=== PATIENT | male | born 1970 | race Caucasian/White ===

== ENCOUNTER 2020-02-18 09:50 | Day surgery (SDC) | payer OTHER ==
[2020-02-17 13:22] VITALS: BMI 19.9
[~2020-02-18 09:50] MED LIST: LACTATED RINGERS 1,000 ML IV SCH; LIDOCAINE 1% (10MG/ML) FOR IV START INTRADERMA PRN
[2020-02-18 10:24] VITALS: TEMP 98.3
[2020-02-18] MEDS ORDERED: LIDOCAINE 1% INJ 10MG/ML (20 ML MDV) ONE (10:53)
[2020-02-18] MEDS ORDERED: PROPOFOL 10 MG/ML 20 ML VIAL IV ONE (10:53)
--- NOTE | 2020-02-18 11:13 | P.PCN ---
Date of Procedure: 02/18/20 Procedure(s) Performed: Brief history: Patient is a pleasant 49-year-old white female scheduled for an elective upper endoscopy as well as colonoscopy as a part of evaluation of with epigastric pain/1 episode of hematemesis and screening for colorectal neoplasia Procedure performed: Esophagogastroduodenoscopy biopsy Colonoscopy with snare polypectomy Preoperative diagnosis: Epigastric pain/hematemesis Screening for colon cancer Anesthesia: MAC Procedure: After informed consent was obtained from the patient was brought into the endoscopy unit and IV sedation was administered by anesthesia under continuous monitoring. Initially upper endoscopy was done. The Olympus GF 160 video endoscope was inserted inserted into the mouth and esophagus intubated without any difficulty and was gradually advanced into the stomach and duodenum and carefully examined. The bulb and second part of the duodenum appeared normal. The scope was then withdrawn into the stomach adequately insufflated with air and upon careful examination the antrum and body, had mild diffuse gastritis and biopsies were done from this area. The cardia and fundus appeared normal. The scope was then withdrawn into the esophagus. The GE junction was located at 40 cm to the incisors. It appeared regular with 2 superficial erosions consistent with LA grade B reflux esophagitis.. Rest of the esophagus appeared normal. Patient tolerated the procedure well. At this time the patient continued to remain sedation. Initial digital rectal examination was normal. Olympus CF 160 video colonoscope was then inserted into the rectum and gradually advanced to the cecum without any difficulty. Careful examination was performed as the scope was gradually being withdrawn. The prep was excellent. The cecum, ascending colon, transverse colon, descending colon, sigmoid colon and rectum appeared normal. There was a 1 cm polyp in the proximal rectum that was removed by snare polypectomy. Retroflexion was performed in the rectum and no lesions were noted. Patient tolerated the procedure well. Impression: 1. Upper endoscopy revealed mild diffuse gastritis and LA grade a reflux esophagitis 2. Colonoscopy revealed 1 cm proximal rectal polyp status post polypectomy Recommendations: Findings of this examination were discussed with the patient as well as is family. He was advised to follow with the biopsy results. He was advised to follow with the biopsy results. If the biopsy shows an adenoma he can have a repeat colonoscopy in 3 years.
[2020-02-18 11:25] VITALS: RESP 16
[2020-02-18 11:30] VITALS: BP 126/87; PULSE 74
== END 2020-02-18 11:50 | disposition home or self-care (01) ==
LOC: ORWHC2ENDO 09:50
PROVIDERS: ATTEND Internal Medicine Gastroenterology
DX: K29.51 Unspecified chronic gastritis with bleeding (principal); K21.0 Gastro-esophageal reflux disease with esophagitis; Z12.11 Encounter for screening for malignant neoplasm of colon; D12.8 Benign neoplasm of rectum; K08.89 Other specified disorders of teeth and supporting structures; I25.2 Old myocardial infarction; I10 Essential (primary) hypertension; F17.210 Nicotine dependence, cigarettes, uncomplicated; Z79.899 Other long term (current) drug therapy
CPT/HCPCS: 88305; 45385; 43239; J2001; J2704

== ENCOUNTER 2022-09-04 11:15 | Emergency (ER) | payer OTHER ==
[2022-09-04 11:23] VITALS: TEMP 98.4
[2022-09-04] MEDS ORDERED: KETOROLAC 15 MG/ML 1 ML VIAL IVP STA (11:30)
[2022-09-04 11:58] LABS: Basophils % (A) 1 %; Eosinophils # (A) 0.1 k/uL (0-0.7); Eosinophils % (A) 2 %; HGB 13.9 gm/dL (13.0-17.5); Lymphocytes # (A) 1.3 k/uL (1.0-4.8); Lymphocytes % (A) 21 %; MCH 33.8 pg (25.0-35.0); MCHC 34.9 g/dL (31.0-37.0); MCV 96.9 fL (80.0-100.0); Mean Platelet Volume 7.2; Monocytes # (A) 0.4 k/uL (0-1.0); Monocytes % (A) 6 %; Neutrophils # (A) 4.3 k/uL (1.3-7.7); Neutrophils % (A) 69 %; Platelet Count 230 k/uL (150-450); RBC 4.13 m/uL (4.30-5.90); RDW 12.1 % (11.5-15.5); WBC 6.3 k/uL (3.8-10.6)
[2022-09-04 12:13] LABS: INR 0.9 (<1.2); Partial Thromboplastin Time 22.8 sec (22.0-30.0); Prothrombin Time 9.5 sec (9.0-12.0)
--- NOTE | 2022-09-04 12:14 | ED ---
General Adult HPI - General Chief complaint: Recheck/Abnormal Lab/Rx Stated complaint: lt sided rib pain Time Seen by Provider: 09/04/22 11:24 Source: patient, RN notes reviewed Mode of arrival: ambulatory Limitations: no limitations - History of Present Illness Initial comments: 52-year-old male presents emergency Department with chief complaint of left- sided rib pain. Patient states pain started over the last few days. Patient states that pain is worse with movements only cause. 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 He denies any chest pain as felt short of breath no fevers chills no abdominal pain no rashes. - Related Data Home Medications Medication Instructions Recorded Confirmed Cholecalciferol [Vitamin D3 (25 5,000 unit PO DAILY 02/17/20 02/18/20 Mcg = 1000 Iu)] hydroCHLOROthiazide [Hydrodiuril] 12.5 mg PO DAILY 02/17/20 02/18/20 lisinopriL 40 mg PO DAILY 02/17/20 02/18/20 Allergies Allergy/AdvReac Type Severity Reaction Status Date / Time No Known Allergies Allergy Verified 09/04/22 11:23 Review of Systems ROS Statement: Those systems with pertinent positive or pertinent negative responses have been documented in the HPI. ROS Other: All systems not noted in ROS Statement are negative. Past Medical History Past Medical History: GI Bleed, Hypertension, Myocardial Infarction (SC) Additional Past Medical History / Comment(s): "Mild SC 2011 est." c/o heartburn, occ vomiting, occ hematemesis. Last Myocardial Infarction Date:: 2011 History of Any Multi-Drug Resistant Organisms: None Reported Past Surgical History: No Surgical Hx Reported Past Anesthesia/Blood Transfusion Reactions: No Reported Reaction Smoking Status: Current every day smoker Past Alcohol Use History: Daily Past Drug Use History: None Reported - Past Family History Mother Family Medical History: Cancer Additional Family Medical History / Comment(s): breast General Exam Limitations: no limitations General appearance: alert, in no apparent distress Head exam: Present: atraumatic, normocephalic, normal inspection Eye exam: Present: normal appearance, PERRL, EOMI. Absent: scleral icterus, conjunctival injection, periorbital swelling ENT exam: Present: normal exam, normal oropharynx, mucous membranes moist, TM's normal bilaterally Neck exam: Present: normal inspection. Absent: tenderness, meningismus, lymphadenopathy Respiratory exam: Present: normal lung sounds bilaterally, chest wall tenderness. Absent: respiratory distress, wheezes, rales, rhonchi, stridor Cardiovascular Exam: Present: regular rate, normal rhythm, normal heart sounds. Absent: systolic murmur, diastolic murmur, rubs, gallop, clicks GI/Abdominal exam: Present: soft, normal bowel sounds. Absent: distended, tenderness, guarding, rebound, rigid Back exam: Absent: CVA tenderness (R), CVA tenderness (L) Neurological exam: Present: alert Skin exam: Present: warm, dry, intact, normal color. Absent: rash Course Vital Signs 09/04/22 11:17 Temperature 98.4 F Pulse Rate 85 Respiratory 16 Rate Blood Pressure 135/86 O2 Sat by Pulse 99 Oximetry EKG Findings - EKG Comments: EKG Findings:: EKG performed at 11:32 sinus rhythm rate of 75 NH 150 QRS 99 QT/QTC 360/389 - EKG Results: EKG: interpreted by CATHLEEN Medical Decision Making - Medical Decision Making Was pt. sent in by a medical professional or institution (, PA, SHELL SIEVE OPERATOR, urgent care, hospital, or intermediate...) When possible be specific @ -No Did you speak to anyone other than the patient for history (EMS, parent, family, police, friend...)? What history was obtained from this source @ -No Did you review nursing and triage notes (agree or disagree)? Why? @ -I reviewed and agree with nursing and triage notes Were old charts reviewed (outside hosp., previous admission, EMS record, old EKG, old radiological studies, urgent care reports/EKG's, intermediate records)? Report findings @ -No old charts were reviewed Differential Diagnosis (chest pain, altered mental status, abdominal pain women, abdominal pain men, vaginal bleeding, weakness, fever, dyspnea, syncope, headache, dizziness, GI bleed, back pain, seizure, CVA, palpatations, mental health)? @ -Rib fracture, pneumothorax, costochondritis, chest wall injury, ACS, pneumonia, EKG interpreted by me (3pts min.). @ -As above X-rays interpreted by me (1pt min.). @ -Chest x-ray shows right upper lobe nodule, otherwise no acute process CT interpreted by me (1pt min.). @ -None done U/S interpreted by me (1pt. min.). @ -None done What testing was considered but not performed or refused? (CT, X-rays, U/S, labs)? Why? @ -CTA chest was considered though current d-dimer is negative and may follow palpation for CT to rule out nodule pulmonology, PCP What meds were considered but not given or refused? Why? @ -None Did you discuss the management of the patient with other professionals (professionals i.e. , PA, SHELL SIEVE OPERATOR, lab, RT, psych nurse, social work supervisor, credit and loan collections supervisor, teacher, protective officer, telephonic case manager)? Give summary @ -No Was smoking cessation discussed for >3mins.? @ -I discussed smoking cessation for greater than 3 minutes. The risk of smoking were discussed with the patient including but not limited to risks of cancer, stroke, coronary artery disease and COPD. Also discussed with patient were multiple methods of quitting smoking. Lastly we discussed the financial cost of smoking. Was critical care preformed (if so, how long)? @ -No Were there social determinants of health that impacted care today? How? (Homelessness, low income, unemployed, alcoholism, drug addiction, transportation, low edu. Level, literacy, decrease access to med. care, fpc, rehab)? @ -No Was there de-escalation of care discussed even if they declined (Discuss DNR or withdrawal of care, Hospice)? DNR status @ -No What co-morbidities impacted this encounter? (DM, HTN, Smoking, COPD, CAD, Cancer, CVA, ARF, Chemo, Hep., AIDS, mental health diagnosis, sleep apnea, morbid obesity)? @ -Smoking history Was patient admitted / discharged? Hospital course, mention meds given and route, prescriptions, significant lab abnormalities, going to OR and other pertinent info. @ -Discharge patient has reproducible left chest wall pain agents pain has been present for 3 days with a negative troponin patient needs a follow-up outpatient for CT her for a nodule on x-ray. Undiagnosed new problem with uncertain prognosis? @ -No Drug Therapy requiring intensive monitoring for toxicity (Heparin, Nitro, Insulin, Cardizem)? @ -No Were any procedures done? @ -No Diagnosis/symptom? @ -Chest wall pain Acute, or Chronic, or Acute on Chronic? @ -Acute Uncomplicated (without systemic symptoms) or Complicated (systemic symptoms)? @ -Uncomplicated Side effects of treatment? @ -No Exacerbation, Progression, or Severe Exacerbation? @ -No Poses a threat to life or bodily function? How? (Chest pain, USA, SC, pneumonia, PE, COPD, DKA, ARF, appy, cholecystitis, CVA, Diverticulitis, Homicidal, Suicidal, threat to staff... and all critical care pts) @ -No - Lab Data Result diagrams: 09/04/22 11:37 09/04/22 11:37 Lab Results 09/04/22 09/04/22 09/04/22 Range/Units 11:37 11:37 11:37 WBC 6.3 (3.8-10.6) k/uL RBC 4.13 L (4.30-5.90) m/uL Hgb 13.9 (13.0-17.5) gm/dL Hct 40.0 (39.0-53.0) % MCV 96.9 (80.0-100.0) fL MCH 33.8 (25.0-35.0) pg MCHC 34.9 (31.0-37.0) g/dL RDW 12.1 (11.5-15.5) % Plt Count 230 (150-450) k/uL MPV 7.2 Neutrophils % 69 % Lymphocytes % 21 % Monocytes % 6 % Eosinophils % 2 % Basophils % 1 % Neutrophils # 4.3 (1.3-7.7) k/uL Lymphocytes # 1.3 (1.0-4.8) k/uL Monocytes # 0.4 (0-1.0) k/uL Eosinophils # 0.1 (0-0.7) k/uL Basophils # 0.0 (0-0.2) k/uL PT 9.5 (9.0-12.0) sec INR 0.9 (<1.2) APTT 22.8 (22.0-30.0) sec D-Dimer 0.43 (<0.60) mg/L FEU Sodium 132 L (137-145) mmol/L Potassium 4.7 (3.5-5.1) mmol/L Chloride 100 (98-107) mmol/L Carbon Dioxide 25 (22-30) mmol/L Anion Gap 7 mmol/L BUN 6 L (9-20) mg/dL Creatinine 0.64 L (0.66-1.25) mg/dL Est GFR (CKD-EPI)AfAm >90 (>60 ml/min/1.73 sqM) Est GFR (CKD-EPI)NonAf >90 (>60 ml/min/1.73 sqM) Glucose 97 (74-99) mg/dL Calcium 9.0 (8.4-10.2) mg/dL Magnesium 2.0 (1.6-2.3) mg/dL Total Bilirubin 0.4 (0.2-1.3) mg/dL AST 31 (17-59) U/L ALT 28 (4-49) U/L Alkaline Phosphatase 47 (38-126) U/L Troponin I (0.000-0.034) ng/mL Total Protein 6.9 (6.3-8.2) g/dL Albumin 4.5 (3.5-5.0) g/dL 09/04/22 Range/Units 11:37 WBC (3.8-10.6) k/uL RBC (4.30-5.90) m/uL Hgb (13.0-17.5) gm/dL Hct (39.0-53.0) % MCV (80.0-100.0) fL MCH (25.0-35.0) pg MCHC (31.0-37.0) g/dL RDW (11.5-15.5) % Plt Count (150-450) k/uL MPV Neutrophils % % Lymphocytes % % Monocytes % % Eosinophils % % Basophils % % Neutrophils # (1.3-7.7) k/uL Lymphocytes # (1.0-4.8) k/uL Monocytes # (0-1.0) k/uL Eosinophils # (0-0.7) k/uL Basophils # (0-0.2) k/uL PT (9.0-12.0) sec INR (<1.2) APTT (22.0-30.0) sec D-Dimer (<0.60) mg/L FEU Sodium (137-145) mmol/L Potassium (3.5-5.1) mmol/L Chloride (98-107) mmol/L Carbon Dioxide (22-30) mmol/L Anion Gap mmol/L BUN (9-20) mg/dL Creatinine (0.66-1.25) mg/dL Est GFR (CKD-EPI)AfAm (>60 ml/min/1.73 sqM) Est GFR (CKD-EPI)NonAf (>60 ml/min/1.73 sqM) Glucose (74-99) mg/dL Calcium (8.4-10.2) mg/dL Magnesium (1.6-2.3) mg/dL Total Bilirubin (0.2-1.3) mg/dL AST (17-59) U/L ALT (4-49) U/L Alkaline Phosphatase (38-126) U/L Troponin I <0.012 (0.000-0.034) ng/mL Total Protein (6.3-8.2) g/dL Albumin (3.5-5.0) g/dL Disposition Clinical Impression: Chest wall pain, Lung nodule Disposition: HOME SELF-CARE Condition: Stable Instructions (If sedation given, give patient instructions): Chest Pain (ED) Additional Instructions: Please return to the Emergency Department if symptoms worsen or any other concerns. Is patient prescribed a controlled substance at d/c from ED?: No Referrals: Yonatan Bishop DO [Primary Care Provider] - 1-2 days Time of Disposition: 13:08
--- NOTE | 2022-09-04 12:23 | XR ---
EXAMINATION TYPE: XR chest 2V DATE OF EXAM: 09/04/2022 COMPARISON: NONE TECHNIQUE: PA and lateral views submitted. HISTORY: Left-sided rib pain FINDINGS: The lungs are clear and there is no pneumothorax, pleural effusion, or focal pneumonia. Heart size normal and no overt failure. Osseous structures demonstrate hypertrophic and degenerative changes of the spine. Diffuse hyperinflation suggesting COPD. There is a vague nodular density in the right lung apex. Heart size normal. IMPRESSION: 1. COPD. Short-term follow-up CT chest recommended to assess for possible right apical lung nodule or lesion..
[2022-09-04 12:24] LABS: ALT 28 U/L (4-49); AST 31 U/L (17-59); African American GFR (CKD) >90 (>60 ml/min/1.73 sqM); Albumin 4.5 g/dL (3.5-5.0); Alkaline Phosphatase 47 U/L (38-126); Anion Gap 7 mmol/L; Blood Urea Nitrogen 6 mg/dL (9-20); Carbon Dioxide 25 mmol/L (22-30); Chloride 100 mmol/L (98-107); Glucose 97 mg/dL (74-99); Non-African American GFR(CKD) >90 (>60 ml/min/1.73 sqM); Potassium 4.7 mmol/L (3.5-5.1); Sodium 132 mmol/L (137-145); Total Bilirubin 0.4 mg/dL (0.2-1.3); Total Protein 6.9 g/dL (6.3-8.2)
[2022-09-04 13:23] VITALS: BP 130/82; PULSE 68; RESP 20
== END 2022-09-04 13:26 | disposition home or self-care (01) ==
LOC: EC 11:15
DX: R07.89 Other chest pain (principal); R91.1 Solitary pulmonary nodule; I10 Essential (primary) hypertension; I25.2 Old myocardial infarction; F17.200 Nicotine dependence, unspecified, uncomplicated
CPT/HCPCS: 36415; 93005; 85379; 80053; 83735; 84484; 85025; 85610; 85730; 71046; 99284; 96374; J1885

== ENCOUNTER → 2022-10-17 | Outpatient (CLI) | payer OTHER ==
--- NOTE | 2022-10-17 11:00 | CT ---
EXAMINATION TYPE: CT chest w con DATE OF EXAM: 10/17/2022 COMPARISON: Chest x-ray September 04, 2022 HISTORY: lung nodule. Abnormal chest x-ray. CT DLP: 139.5 mGycm. Automated Exposure Control for Dose Reduction was Utilized. TECHNIQUE: CT scan of the thorax is performed following with IV Contrast, patient injected with 100 mL of Isovue 300. FINDINGS: LUNGS: Moderate underlying emphysematous changes seen with more focal mild to moderate irregular pare nchymal scarring felt present posterior right lung apex mimicking pulmonary nodule measuring 2.1 x 1. 0 cm axial image 11. Spiculated nodule not entirely excluded without prior comparison. No pleural eff usion or pneumothorax seen bilaterally. Left lung is clear. MEDIASTINUM: There are no greater than 1 cm hilar or mediastinal lymph nodes. No cardiomegaly or pe ricardial effusion is seen. There is four vessel origin from the aortic arch which is normal variant . OTHER: Subcentimeter round lesion right hepatic lobe is too small to further characterize axial image 65 but presumed benign. IMPRESSION: Moderate emphysematous change with 2.1 x 1.0 cm area of concern posterior right lung apex favoring parenchymal scarring. Spiculated nodule less likely but not entirely excluded without prior comparison. PET/CT follow-up can be performed to further evaluate if no prior outside studies are av ailable for correlation.
== END | disposition home or self-care (01) ==
LOC: RADCTMAIN 07:28
PROVIDERS: ATTEND Family Medicine
DX: J43.9 Emphysema, unspecified (principal); R91.1 Solitary pulmonary nodule; J98.4 Other disorders of lung
CPT/HCPCS: 71260; Q9967

== ENCOUNTER → 2022-11-22 | Outpatient (CLI) | payer OTHER ==
--- NOTE | 2022-11-24 11:58 | PE ---
EXAMINATION TYPE: PET CT fusion skull to thigh DATE OF EXAM: 11/22/2022 CLINICAL INDICATION:Male, 52 years old with history of R91.8 OTHER NONSPECIFIC ABNORMAL FINDING OF YENI NG F; TECHNIQUE: Following the intravenous administration of 13 mCi of F-18 FDG, whole body images are pe rformed from the skull base to the midthigh. Images are reviewed on the computer in the coronal, axi al, and sagittal planes. Reconstructed rotating images are created on independent workstation and re viewed on the computer. A non-contrast CT is performed in conjunction with the PET scan. Glucose le radha 86 mg/dL COMPARISON: CT 10/17/2022, PET/CT None, FINDINGS: Mediastinal SUV mean is 1.6. Hepatic parenchyma SUV mean is 1.9. SKULL BASE AND NECK: No suspicious radiotracer activity. CHEST, MEDIASTINUM, AND HILAR REGION: Focal FDG activity corresponding to pulmonary nodule in the right posterior lung apex measuring rough ly 19 x 9 mm max SUV 2.0. Unclear whether this is fibrotic/scarring change versus ABDOMEN AND PELVIS: No suspicious radiotracer activity. OSSEOUS STRUCTURES: No suspicious radiotracer activity. OTHER CT: Atherosclerosis of the carotid bifurcations arterial vasculature and coronary arteries. Rig ht hepatic cyst. Centrilobular and paraseptal emphysema changes. IMPRESSION: Minimal Focal FDG activity corresponding to pulmonary nodule in the right posterior lung apex measuri ng roughly 19 x 9 mm max SUV 2.0. Unclear whether this is scarring with infectious/inflammatory duncan es. Attention follow-up CT chest in 3 months.
== END | disposition home or self-care (01) ==
LOC: RADPETMAIN 17:14
PROVIDERS: ATTEND Internal Medicine Critical Care Medicine
DX: R91.8 Other nonspecific abnormal finding of lung field (principal)
CPT/HCPCS: 78815; A9552

== ENCOUNTER 2022-12-17 11:59 | Observation (INO) | payer OTHER ==
[2022-12-17] MEDS ORDERED: SODIUM CHLORIDE 0.9% 1,000 ML IV STA (12:34)
[2022-12-17] MEDS ORDERED: ONDANSETRON 4 MG/2 ML VIAL IVP STA (12:34)
[2022-12-17 13:02] LABS: Basophils % (A) 0 %; Eosinophils # (A) 0.1 k/uL (0-0.7); Eosinophils % (A) 1 %; HCT 38.8 % (39.0-53.0); HGB 13.4 gm/dL (13.0-17.5); Lymphocytes % (A) 12 %; MCH 33.9 pg (25.0-35.0); MCHC 34.5 g/dL (31.0-37.0); MCV 98.4 fL (80.0-100.0); Mean Platelet Volume 7.8; Monocytes # (A) 0.6 k/uL (0-1.0); Monocytes % (A) 7 %; Neutrophils # (A) 6.5 k/uL (1.3-7.7); Neutrophils % (A) 79 %; Platelet Count 245 k/uL (150-450); RBC 3.95 m/uL (4.30-5.90); RDW 11.6 % (11.5-15.5); WBC 8.2 k/uL (3.8-10.6)
[2022-12-17 13:12] LABS: ALT 30 U/L (4-49); AST 36 U/L (17-59); African American GFR (CKD) >90 (>60 ml/min/1.73 sqM); Albumin 4.2 g/dL (3.5-5.0); Alkaline Phosphatase 54 U/L (38-126); Anion Gap 9 mmol/L; Blood Urea Nitrogen 11 mg/dL (9-20); Calcium 9.2 mg/dL (8.4-10.2); Carbon Dioxide 27 mmol/L (22-30); Chloride 87 mmol/L (98-107); Glucose 105 mg/dL (74-99); Lipase 72 U/L (23-300); Magnesium 1.9 mg/dL (1.6-2.3); Non-African American GFR(CKD) >90 (>60 ml/min/1.73 sqM); Potassium 4.2 mmol/L (3.5-5.1); Sodium 123 mmol/L (137-145); Total Bilirubin 0.7 mg/dL (0.2-1.3); Total Protein 6.6 g/dL (6.3-8.2)
[2022-12-17] MEDS ORDERED: ONDANSETRON 4 MG/2 ML VIAL IVP PRN (13:54)
[2022-12-17] MEDS ORDERED: NALOXONE 0.4 MG/ML 1 ML VIAL IV PRN (13:54)
--- NOTE | 2022-12-17 13:54 | ED ---
Nausea/Vomiting/Diarrhea HPI - General Chief complaint: Nausea/Vomiting/Diarrhea Stated complaint: Dehydrated Time Seen by Provider: 12/17/22 12:21 Source: patient, RN notes reviewed Mode of arrival: ambulatory Limitations: no limitations - History of Present Illness Initial comments: 52-year-old male presents emergency Department chief complaint nausea vomiting, dizziness. 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 Patient states that he just doesn't feel well. He states he feels dehydrated. Patient has no localized abdominal pain of went of headache no chest pain or shortness of breath. - Related Data Home Medications Medication Instructions Recorded Confirmed hydroCHLOROthiazide [Hydrodiuril] 12.5 mg PO DAILY 02/17/20 12/17/22 lisinopriL 40 mg PO DAILY 02/17/20 12/17/22 Ibuprofen [Motrin] 800 mg PO Q6H PRN 12/17/22 12/17/22 Allergies Allergy/AdvReac Type Severity Reaction Status Date / Time No Known Allergies Allergy Verified 12/17/22 13:20 Review of Systems ROS Statement: Those systems with pertinent positive or pertinent negative responses have been documented in the HPI. ROS Other: All systems not noted in ROS Statement are negative. Past Medical History Past Medical History: GI Bleed, Hypertension, Myocardial Infarction ([place]) Additional Past Medical History / Comment(s): "Mild [place] 2011 est." c/o heartburn, occ vomiting, occ hematemesis. Last Myocardial Infarction Date:: 2011 History of Any Multi-Drug Resistant Organisms: None Reported Past Surgical History: No Surgical Hx Reported Past Anesthesia/Blood Transfusion Reactions: No Reported Reaction Past Psychological History: No Psychological Hx Reported Smoking Status: Current every day smoker Past Alcohol Use History: Daily Past Drug Use History: None Reported - Past Family History Mother Family Medical History: Cancer Additional Family Medical History / Comment(s): breast General Exam Limitations: no limitations General appearance: alert, in no apparent distress Head exam: Present: atraumatic, normocephalic, normal inspection Eye exam: Present: normal appearance, PERRL, EOMI. Absent: scleral icterus, conjunctival injection, periorbital swelling ENT exam: Present: normal exam, mucous membranes dry, mucous membranes moist Neck exam: Present: normal inspection, full ROM. Absent: tenderness, meningismus, lymphadenopathy Respiratory exam: Present: normal lung sounds bilaterally. Absent: respiratory distress, wheezes, rales, rhonchi, stridor Cardiovascular Exam: Present: regular rate, normal rhythm, normal heart sounds. Absent: systolic murmur, diastolic murmur, rubs, gallop, clicks GI/Abdominal exam: Present: soft, normal bowel sounds. Absent: distended, tenderness, guarding, rebound, rigid Course Vital Signs 12/17/22 12/17/22 12/17/22 12:00 12:42 12:43 Temperature 98.2 F Pulse Rate 79 Pulse Rate [ 73 75 Right Pulse Oximetery] Respiratory 16 18 20 Rate Blood Pressure 109/72 Blood Pressure 103/72 [Right Arm Sitting] Blood Pressure [Right Arm Standing] Blood Pressure 102/70 [Right Arm Supine] O2 Sat by Pulse 99 Oximetry 12/17/22 12:44 Temperature Pulse Rate Pulse Rate [ 88 Right Pulse Oximetery] Respiratory 20 Rate Blood Pressure Blood Pressure [Right Arm Sitting] Blood Pressure 91/63 [Right Arm Standing] Blood Pressure [Right Arm Supine] O2 Sat by Pulse Oximetry Medical Decision Making - Medical Decision Making Was pt. sent in by a medical professional or institution (, PA, MANAGER INSTRUMENTATION, urgent care, hospital, or care home...) When possible be specific @ -No Did you speak to anyone other than the patient for history (EMS, parent, family, police, friend...)? What history was obtained from this source @ -No Did you review nursing and triage notes (agree or disagree)? Why? @ -I reviewed and agree with nursing and triage notes Were old charts reviewed (outside hosp., previous admission, EMS record, old EKG, old radiological studies, urgent care reports/EKG's, care home records)? Report findings @ -No old charts were reviewed Differential Diagnosis (chest pain, altered mental status, abdominal pain women, abdominal pain men, vaginal bleeding, weakness, fever, dyspnea, syncope, headache, dizziness, GI bleed, back pain, seizure, CVA, palpatations, mental health, musculoskeletal)? @ -Differential Weakness: Hypoglycemia, shock, sepsis, hyponatremia, anemia, infection, [place], ETOH, adverse medicine reaction, overdose, stroke, this is not meant to be an all-inclusive list. EKG interpreted by me (3pts min.). @ -As above X-rays interpreted by me (1pt min.). @ -None done CT interpreted by me (1pt min.). @ -None done U/S interpreted by me (1pt. min.). @ -None done What testing was considered but not performed or refused? (CT, X-rays, U/S, labs)? Why? @ -None What meds were considered but not given or refused? Why? @ -None Did you discuss the management of the patient with other professionals (professionals i.e. DrTerry, PA, MANAGER INSTRUMENTATION, lab, RT, psych nurse, psych social worker, vessel traffic officer, teacher, network security officer, home health care case manager)? Give summary @ -Dr. Bishop for admission given symptomatic hyponatremia Was smoking cessation discussed for >3mins.? @ -No Was critical care preformed (if so, how long)? @ -No Were there social determinants of health that impacted care today? How? (Homelessness, low income, unemployed, alcoholism, drug addiction, transportation, low edu. Level, literacy, decrease access to med. care, custodial, rehab)? @ -No Was there de-escalation of care discussed even if they declined (Discuss DNR or withdrawal of care, Hospice)? DNR status @ -No What co-morbidities impacted this encounter? (DM, HTN, Smoking, COPD, CAD, Cancer, CVA, ARF, Chemo, Hep., AIDS, mental health diagnosis, sleep apnea, morbid obesity)? @ -None Was patient admitted / discharged? Hospital course, mention meds given and route, prescriptions, significant lab abnormalities, going to OR and other pertinent info. @ -[Admitted patient has evidence of hypernatremia. Patient's hyponatremia may be coming from his GI illnesses versus beer potomania. Discuss case with Dr. Bishop Undiagnosed new problem with uncertain prognosis? @ -No Drug Therapy requiring intensive monitoring for toxicity (Heparin, Nitro, Insulin, Cardizem)? @ -No Were any procedures done? @ -No Diagnosis/symptom? @ -Hyponatremia Acute, or Chronic, or Acute on Chronic? @ -Acute Uncomplicated (without systemic symptoms) or Complicated (systemic symptoms)? @ -Complicated Side effects of treatment? @ -No Exacerbation, Progression, or Severe Exacerbation? @ -No Poses a threat to life or bodily function? How? (Chest pain, [place], [place], pneumonia, PE, COPD, DKA, ARF, appy, cholecystitis, CVA, Diverticulitis, Homicidal, Suicidal, threat to staff... and all critical care pts) @ -No - Lab Data Result diagrams: 12/17/22 12:45 12/17/22 12:45 Lab Results 12/17/22 12/17/22 Range/Units 12:45 12:45 WBC 8.2 (3.8-10.6) k/uL RBC 3.95 L (4.30-5.90) m/uL Hgb 13.4 (13.0-17.5) gm/dL Hct 38.8 L (39.0-53.0) % MCV 98.4 (80.0-100.0) fL MCH 33.9 (25.0-35.0) pg MCHC 34.5 (31.0-37.0) g/dL RDW 11.6 (11.5-15.5) % Plt Count 245 (150-450) k/uL MPV 7.8 Neutrophils % 79 % Lymphocytes % 12 % Monocytes % 7 % Eosinophils % 1 % Basophils % 0 % Neutrophils # 6.5 (1.3-7.7) k/uL Lymphocytes # 1.0 (1.0-4.8) k/uL Monocytes # 0.6 (0-1.0) k/uL Eosinophils # 0.1 (0-0.7) k/uL Basophils # 0.0 (0-0.2) k/uL Sodium 123 L (137-145) mmol/L Potassium 4.2 (3.5-5.1) mmol/L Chloride 87 L (98-107) mmol/L Carbon Dioxide 27 (22-30) mmol/L Anion Gap 9 mmol/L BUN 11 (9-20) mg/dL Creatinine 0.92 (0.66-1.25) mg/dL Est GFR (CKD-EPI)AfAm >90 (>60 ml/min/1.73 sqM) Est GFR (CKD-EPI)NonAf >90 (>60 ml/min/1.73 sqM) Glucose 105 H (74-99) mg/dL Calcium 9.2 (8.4-10.2) mg/dL Magnesium 1.9 (1.6-2.3) mg/dL Total Bilirubin 0.7 (0.2-1.3) mg/dL AST 36 (17-59) U/L ALT 30 (4-49) U/L Alkaline Phosphatase 54 (38-126) U/L Total Protein 6.6 (6.3-8.2) g/dL Albumin 4.2 (3.5-5.0) g/dL Lipase 72 (23-300) U/L - EKG Data -: EKG Interpreted by Me EKG Comments: EKG performed that 1259 sinus rhythm rate of 65 FL 155 QRS 113 QT/QTC 411/423 Disposition Clinical Impression: Dehydration, Hyponatremia Disposition: ADMITTED IP TO THIS HOSP Condition: Fair Referrals: Yonatan Bishop DO [Primary Care Provider] - 1-2 days Time of Disposition: 13:41
[2022-12-17] MEDS: SODIUM CHLORIDE 0.9% 1,000 ML IV SCH (14:47)
[2022-12-18 03:16] VITALS: RESP 16
[2022-12-18] MEDS: SODIUM CHLORIDE 0.9% 1,000 ML IV SCH (04:16)
[2022-12-18 07:29] VITALS: BP 117/71; PULSE 66; TEMP 98.4
[2022-12-18 08:12] LABS: Basophils % (A) 0 %; Eosinophils # (A) 0.1 k/uL (0-0.7); Eosinophils % (A) 2 %; HCT 37.1 % (39.0-53.0); HGB 12.6 gm/dL (13.0-17.5); Lymphocytes # (A) 0.9 k/uL (1.0-4.8); Lymphocytes % (A) 19 %; MCH 34.3 pg (25.0-35.0); MCHC 33.9 g/dL (31.0-37.0); MCV 101.3 fL (80.0-100.0); Mean Platelet Volume 7.3; Monocytes # (A) 0.4 k/uL (0-1.0); Monocytes % (A) 8 %; Neutrophils # (A) 3.2 k/uL (1.3-7.7); Neutrophils % (A) 69 %; Platelet Count 214 k/uL (150-450); RBC 3.67 m/uL (4.30-5.90); RDW 11.8 % (11.5-15.5); WBC 4.6 k/uL (3.8-10.6)
[2022-12-18 08:29] LABS: ALT 30 U/L (4-49); AST 38 U/L (17-59); African American GFR (CKD) >90 (>60 ml/min/1.73 sqM); Albumin 3.5 g/dL (3.5-5.0); Albumin/Globulin Ratio 1.6; Alkaline Phosphatase 56 U/L (38-126); Anion Gap 8 mmol/L; Blood Urea Nitrogen 7 mg/dL (9-20); Calcium 8.7 mg/dL (8.4-10.2); Carbon Dioxide 24 mmol/L (22-30); Chloride 96 mmol/L (98-107); Globulin 2.2 g/dL; Glucose 90 mg/dL (74-99); Non-African American GFR(CKD) >90 (>60 ml/min/1.73 sqM); Sodium 128 mmol/L (137-145); Total Bilirubin 0.5 mg/dL (0.2-1.3); Total Protein 5.7 g/dL (6.3-8.2)
[2022-12-18] MEDS ORDERED: lisinopriL 20 MG TAB PO SCH (09:00)
--- NOTE | 2022-12-18 13:22 | P.HPIM ---
History of Present Illness H&P Date: 12/18/22 Chief Complaint: Nausea and vomiting History and Physical and Discharge Summary This is a 52-year-old gentleman with past medical history significant for GI bleed, hypertension, CAD/[place], ongoing nicotine dependence, daily alcohol abuse of 8-10 [place] tall boys , and multiple other medical issues presented to the ER with complaints of nausea, vomiting, mild lightheadedness. Reports his last drink was on Friday, drink 8-10 beers daily, went to bed early, woke up nauseated, vomiting and attributes it to his alcohol intake. Nausea and vomiting persisted for 2-1/2 days and presented to the ER. Sodium on admission 123. Received IV fluid hydration, sodium significantly improved to 128. No further nausea and vomiting. Positive diet intake, tolerating well. Denies abdominal pain. Ambulating, tolerating exertion well. Denies lightheadedness, dizziness or focal deficits. Denies chest pain, palpitations or shortness of breath. No tremors, no shakes. Alcohol abstinence and smoking cessation reinforced. Review of Systems ROS Statement: Those systems with pertinent positive or pertinent negative responses have been documented in the HPI. ROS Other: All systems not noted in ROS Statement are negative. Past Medical History Past Medical History: GI Bleed, Hypertension, Myocardial Infarction ([place]) Additional Past Medical History / Comment(s): "Mild [place] 2011 est." c/o heartburn, occ vomiting, occ hematemesis. Last Myocardial Infarction Date:: 2011 History of Any Multi-Drug Resistant Organisms: None Reported Past Surgical History: No Surgical Hx Reported Past Anesthesia/Blood Transfusion Reactions: No Reported Reaction Past Psychological History: No Psychological Hx Reported Smoking Status: Current every day smoker Past Alcohol Use History: Daily Additional Past Alcohol Use History / Comment(s): Smoking 1 ppd, since age 16. Drinks couple beers daily, 3-4 beers Past Drug Use History: None Reported - Past Family History Mother Family Medical History: Cancer Additional Family Medical History / Comment(s): breast Medications and Allergies Home Medications Medication Instructions Recorded Confirmed Type lisinopriL 40 mg PO DAILY 02/17/20 12/17/22 History Omeprazole 40 mg PO DAILY #30 cap 12/18/22 Rx Allergies Allergy/AdvReac Type Severity Reaction Status Date / Time No Known Allergies Allergy Verified 12/17/22 13:20 Physical Exam Vitals: Vital Signs Temp Pulse Pulse Resp BP BP BP 12/18/22 07:09 98.4 F 66 16 12/18/22 02:00 98.5 F 63 16 102/59 12/17/22 23:00 18 12/17/22 22:00 98.7 F 70 18 107/72 12/17/22 20:45 97.6 F 78 16 12/17/22 20:00 66 18 105/70 12/17/22 18:00 78 19 105/71 12/17/22 17:00 82 20 90/57 12/17/22 16:00 75 20 101/63 12/17/22 15:00 84 20 115/84 12/17/22 14:50 89 16 115/84 12/17/22 12:44 88 20 91/63 12/17/22 12:43 75 20 103/72 12/17/22 12:42 73 18 12/17/22 12:00 98.2 F 79 16 109/72 BP Pulse Ox 12/18/22 07:09 117/71 99 12/18/22 02:00 98 12/17/22 23:00 12/17/22 22:00 97 12/17/22 20:45 112/66 99 12/17/22 20:00 98 12/17/22 18:00 98 12/17/22 17:00 98 12/17/22 16:00 100 12/17/22 15:00 99 12/17/22 14:50 100 12/17/22 12:44 12/17/22 12:43 12/17/22 12:42 102/70 12/17/22 12:00 99 Intake and Output 12/17/22 12/18/22 12/18/22 22:59 06:59 14:59 Intake Total 1200 Balance 1200 Intake: Intake, IV Titration 800 Amount Sodium Chloride 0.9% 1, 800 000 ml @ 75 mls/hr IV . [id number] [facility] Rx#:[id number] Oral 400 Other: Voiding Method Toilet # Voids 2 Weight 59.874 kg PHYSICAL EXAM: VITAL SIGNS: [As above] GENERAL: Sitting up at bedside, no acute distress HEENT: Normocephalic, atraumatic ,Conjunctivae normal. eyes normal. MMM. NECK: Supple, No JVD. No thyroid enlargement. No LNs CARDIOVASCULAR: S1, S2 regular.. No murmur RESPIRATION: Unlabored, equal air entry, essentially clear .Breath sounds diminished in the bases. No rhonchi or crackles. No bronchial breathing. ABDOMEN: Soft, nondistended, nontender . No guarding. no masses palpable. No ascites, No hepatosplenomegaly.Bowel sounds heard. LEGS: No edema. no swelling PSYCHIATRY: Alert and oriented X3, mood and affect normal. NERVOUS SYSTEM: Cranial N 2-12 grossly normal. Moves all 4 limbs. No focal deficits. Strength and sensation grossly intact. Skin: Warm and dry, no rash Results CBC & Chem 7: 12/18/22 07:58 12/18/22 07:58 Labs: Abnormal Lab Results - Last 24 Hours (Table) 12/17/22 12/17/22 12/18/22 Range/Units 12:45 12:45 07:58 RBC 3.95 L 3.67 L (4.30-5.90) m/uL Hgb 12.6 L (13.0-17.5) gm/dL Hct 38.8 L 37.1 L (39.0-53.0) % MCV 101.3 H (80.0-100.0) fL Lymphocytes # 0.9 L (1.0-4.8) k/uL Sodium 123 L (137-145) mmol/L Chloride 87 L (98-107) mmol/L BUN (9-20) mg/dL Glucose 105 H (74-99) mg/dL Total Protein (6.3-8.2) g/dL 12/18/22 Range/Units 07:58 RBC (4.30-5.90) m/uL Hgb (13.0-17.5) gm/dL Hct (39.0-53.0) % MCV (80.0-100.0) fL Lymphocytes # (1.0-4.8) k/uL Sodium 128 L (137-145) mmol/L Chloride 96 L (98-107) mmol/L BUN 7 L (9-20) mg/dL Glucose (74-99) mg/dL Total Protein 5.7 L (6.3-8.2) g/dL Thrombosis Risk Factor Assmnt - Choose All That Apply Any of the Below Risk Factors Present?: Yes Each Factor Represents 1 point: Age 41-60 years Other Risk Factors: No Other congenital or acquired thrombophilia - If yes, enter type in comment: No Thrombosis Risk Factor Assessment Total Risk Factor Score: 1 Thrombosis Risk Factor Assessment Level: Low Risk Assessment and Plan Assessment: Nausea, vomiting, dehydration secondary to hypovolemic hyponatremia related to excessive alcohol intake Daily alcohol abuse Nicotine dependence Hypertension CAD, [place] History of GI bleed Plan: Continue on current medication regime ,monitoring and symptomatic treatment. IV fluid hydration. Significant clinical improvement. Patient will be discharged home today in a stable condition with guarded prognosis. Case management to provide patient with this to alcohol rehab resources prior to discharge. Hydrochlorothiazide has been placed on hold, recommendations to resume pending recheck outpatient lab (BMP) as per Primary Care Physician. Discharge Medication List lisinopriL 40 mg PO DAILY 02/17/20 [History] Omeprazole 40 mg PO DAILY #30 cap 12/18/22 [Rx] The impression and plan of care has been dictated as directed. : I performed a history and examination of this patient, discussed the same with the dictator. I agree with the dictator's note ,documented as a scribe. Any additional findings or plans will be noted.
== END 2022-12-18 11:34 | disposition home or self-care (01) ==
LOC: EC 11:59 → 5NMEDONC 14:38 → INTOOBSV 14:38 → 5NMEDONC 15:12 → UNDODISOB 12-18 11:34
PROVIDERS: ADMIT Family Medicine; ATTEND Family Medicine
DX: E87.1 Hypo-osmolality and hyponatremia (principal); E86.0 Dehydration; F10.10 Alcohol abuse, uncomplicated; I25.2 Old myocardial infarction; I10 Essential (primary) hypertension; I25.10 Atherosclerotic heart disease of native coronary artery without angina pectoris; F17.200 Nicotine dependence, unspecified, uncomplicated; Z79.899 Other long term (current) drug therapy; Z80.3 Family history of malignant neoplasm of breast
CPT/HCPCS: 36415; 80053; 83690; 83735; 85025; 93005; 96361; 96374; 99285

== ENCOUNTER 2023-01-06 16:01 | Emergency (ER) | payer OTHER ==
[2023-01-06 16:06] VITALS: TEMP 98.4
[2023-01-06] MEDS ORDERED: SODIUM CHLORIDE 0.9% 1,000 ML IV ONE (16:56)
--- NOTE | 2023-01-06 17:00 | ED ---
General Adult HPI - General Chief complaint: Recheck/Abnormal Lab/Rx Stated complaint: high blood pressure Time Seen by Provider: 01/06/23 16:34 Source: patient, RN notes reviewed Mode of arrival: ambulatory Limitations: no limitations - History of Present Illness Initial comments: 52-year-old male with a past medical history significant for EtOH abuse presents to the emergency department the chief complaint of high blood pressure. Patient reports high blood pressure since last night. He is complaining of accompanying symptoms of dizziness, lightheadedness, chest tightness" he describes his chest tightness is constant and dull ache. He reports he has been taking his blood pressure medications as prescribed. He takes 40 mg of lisinopril daily. He didn't take his medication today. He denies any fevers chills cough, palpitations, shortness of breath, nausea, vomiting, abdominal pain. He does report that he drinks 8-10 beers daily. - Related Data Home Medications Medication Instructions Recorded Confirmed lisinopriL 40 mg PO DAILY 02/17/20 01/06/23 Previous Rx's Medication Instructions Recorded Omeprazole 40 mg PO DAILY #30 cap 12/18/22 Allergies Allergy/AdvReac Type Severity Reaction Status Date / Time No Known Allergies Allergy Verified 01/06/23 18:55 Review of Systems ROS Statement: Those systems with pertinent positive or pertinent negative responses have been documented in the HPI. ROS Other: All systems not noted in ROS Statement are negative. Past Medical History Past Medical History: GI Bleed, Hypertension, Myocardial Infarction ([place]) Additional Past Medical History / Comment(s): "Mild [place] 2011 est." c/o heartburn, occ vomiting, occ hematemesis. Last Myocardial Infarction Date:: 2011 History of Any Multi-Drug Resistant Organisms: None Reported Past Surgical History: No Surgical Hx Reported Past Anesthesia/Blood Transfusion Reactions: No Reported Reaction Past Psychological History: No Psychological Hx Reported Smoking Status: Current every day smoker Past Alcohol Use History: Daily, Heavy Past Drug Use History: None Reported - Past Family History Mother Family Medical History: Cancer Additional Family Medical History / Comment(s): breast General Exam - General Exam Comments Initial Comments: General: Alert, in no acute distress Head: atraumatic normocephalic. Eyes PERRL, EOMI intact, mucous membranes moist Respiratory: Lungs clear to auscultation bilaterally Cardiovascular: Heart rate regular rate and rhythm Abdominal: Soft without guarding or rebound Extremities: Normal inspection with full range of motion and normal capillary refill Neuroogic: alert and oriented 3, CN II-XII intact, able to ambulate with steady gait Skin: warm dry and intact with normal color Limitations: no limitations Course Vital Signs 01/06/23 01/06/23 01/06/23 16:02 16:36 16:39 Temperature 98.4 F Pulse Rate 77 72 Pulse Rate [ 73 Career Development Counselor ] Respiratory 18 20 Rate Blood Pressure 176/93 159/100 O2 Sat by Pulse 99 100 Oximetry 01/06/23 01/06/23 18:27 19:00 Temperature Pulse Rate 74 76 Pulse Rate [ Career Development Counselor ] Respiratory 18 16 Rate Blood Pressure 156/94 159/96 O2 Sat by Pulse 100 97 Oximetry - Reevaluation(s) Reevaluation #1: 01/06/23 18:08 Patient reevaluated. Patient reports no longer feeling dizzy or lightheaded. EKG Findings - EKG Comments: EKG Findings:: I interpreted the following: EKG performed at 16:32 rate 69 bpm normal sinus rhythm W[place] interval 149, QRS duration and 7, QT/QTc 385/405 Medical Decision Making - Medical Decision Making Was pt. sent in by a medical professional or institution (, PA, EATING DISORDER PSYCHOLOGIST, urgent care, hospital, or senior living...) When possible be specific @ -[No] Did you speak to anyone other than the patient for history (EMS, parent, family, police, friend...)? What history was obtained from this source @ -[No] Did you review nursing and triage notes (agree or disagree)? Why? @ -[I reviewed and agree with nursing and triage notes] Were old charts reviewed (outside hosp., previous admission, EMS record, old EKG, old radiological studies, urgent care reports/EKG's, senior living records)? Report findings @ -[No old charts were reviewed] Differential Diagnosis (chest pain, altered mental status, abdominal pain women, abdominal pain men, vaginal bleeding, weakness, fever, dyspnea, syncope, headache, dizziness, GI bleed, back pain, seizure, CVA, palpatations, mental health, musculoskeletal)? @ -[not applicable] EKG interpreted by me (3pts min.). @ -[As above] X-rays interpreted by me (1pt min.). @ -chest x-ray negative for any acute injury pleural process CT interpreted by me (1pt min.). @ -[None done] U/S interpreted by me (1pt. min.). @ -[None done] What testing was considered but not performed or refused? (CT, X-rays, U/S, labs)? Why? @ -[None] What meds were considered but not given or refused? Why? @ -[None] Did you discuss the management of the patient with other professionals (keron obrien i.e. , PA, EATING DISORDER PSYCHOLOGIST, lab, RT, psych nurse, social work nurse, farm field manager, teacher, president and chief commercial officer, registered nurse hh case manager)? Give summary @ -[No] Was smoking cessation discussed for >3mins.? @ -[No] Was critical care preformed (if so, how long)? @ -[No] Were there social determinants of health that impacted care today? How? (Homelessness, low income, unemployed, alcoholism, drug addiction, transp ortation, low edu. Level, literacy, decrease access to med. care, [facility], rehab)? @ -[No] Was there de-escalation of care discussed even if they declined (Discuss DNR or withdrawal of care, Hospice)? DNR status @ -[No] What co-morbidities impacted this encounter? (DM, HTN, Smoking, COPD, CAD, Cancer, CVA, ARF, Chemo, Hep., AIDS, mental health diagnosis, sleep apnea, morbid obesity)? @ -[None] Was patient admitted / discharged? Hospital course, mention meds given and route, prescriptions, significant lab abnormalities, going to OR and other pertinent info. @ -Discharge. This is a 52-year-old male who presents the emergency department with hypertension. Patient had a thorough history and physical exam performed on the ED. Heart rate regular rate and rhythm, lung laterally, abdomen soft and nontender. Patient had lab work and imaging performed which were essentially unremarkable. He was given 1 L of IV fluids with symptomatic relief. I discussed the results in detail with the patient verbalized understanding and all questions were addressed. Return precautions were discussed at length. Patient discharged in stable condition. Case discussed with Dr. Holloway [facility] who agrees with plan of care. Undiagnosed new problem with uncertain prognosis? @ -[No] Drug Therapy requiring intensive monitoring for toxicity (Heparin, Nitro, Insulin, Cardizem)? @ -[No] Were any procedures done? @ -[No] Diagnosis/symptom? @ -Hypertension - Hx of Alcohol Abuse Acute, or Chronic, or Acute on Chronic? @ -Acute Uncomplicated (without systemic symptoms) or Complicated (systemic symptoms)? @ -Uncomplicated Side effects of treatment? @ -[No] Exacerbation, Progression, or Severe Exacerbation? @ -[No] Poses a threat to life or bodily function? How? (Chest pain, [place], [place], pneumonia, PE, COPD, DKA, ARF, appy, cholecystitis, CVA, Diverticulitis, Homicidal, Suicidal, threat to staff... and all critical care pts) @ -Moderate likelihood - Lab Data Result diagrams: 01/06/23 16:52 01/06/23 16:51 Lab Results 01/06/23 01/06/23 01/06/23 Range/Units 16:51 16:51 16:52 WBC 10.4 (3.8-10.6) k/uL RBC 4.04 L (4.30-5.90) m/uL Hgb 13.3 (13.0-17.5) gm/dL Hct 40.2 (39.0-53.0) % MCV 99.5 (80.0-100.0) fL MCH 32.9 (25.0-35.0) pg MCHC 33.1 (31.0-37.0) g/dL RDW 12.3 (11.5-15.5) % Plt Count 255 (150-450) k/uL MPV 7.3 Neutrophils % 86 % Lymphocytes % 8 % Monocytes % 6 % Eosinophils % 0 % Basophils % 0 % Neutrophils # 8.9 H (1.3-7.7) k/uL Lymphocytes # 0.8 L (1.0-4.8) k/uL Monocytes # 0.6 (0-1.0) k/uL Eosinophils # 0.0 (0-0.7) k/uL Basophils # 0.0 (0-0.2) k/uL PT (9.0-12.0) sec INR (<1.2) Sodium 127 L (137-145) mmol/L Potassium 4.9 (3.5-5.1) mmol/L Chloride 92 L (98-107) mmol/L Carbon Dioxide 27 (22-30) mmol/L Anion Gap 8 mmol/L BUN 9 (9-20) mg/dL Creatinine 0.61 L (0.66-1.25) mg/dL Est GFR (CKD-EPI)AfAm >90 (>60 ml/min/1.73 sqM) Est GFR (CKD-EPI)NonAf >90 (>60 ml/min/1.73 sqM) Glucose 183 H (74-99) mg/dL Plasma Lactic Acid Nabeel 1.3 (0.7-2.0) mmol/L Calcium 8.7 (8.4-10.2) mg/dL Total Bilirubin 0.5 (0.2-1.3) mg/dL AST 39 (17-59) U/L ALT 26 (4-49) U/L Alkaline Phosphatase 63 (38-126) U/L Troponin I (0.000-0.034) ng/mL Total Protein 6.7 (6.3-8.2) g/dL Albumin 4.4 (3.5-5.0) g/dL 01/06/23 01/06/23 Range/Units 16:52 16:52 WBC (3.8-10.6) k/uL RBC (4.30-5.90) m/uL Hgb (13.0-17.5) gm/dL Hct (39.0-53.0) % MCV (80.0-100.0) fL MCH (25.0-35.0) pg MCHC (31.0-37.0) g/dL RDW (11.5-15.5) % Plt Count (150-450) k/uL MPV Neutrophils % % Lymphocytes % % Monocytes % % Eosinophils % % Basophils % % Neutrophils # (1.3-7.7) k/uL Lymphocytes # (1.0-4.8) k/uL Monocytes # (0-1.0) k/uL Eosinophils # (0-0.7) k/uL Basophils # (0-0.2) k/uL PT 9.4 (9.0-12.0) sec INR 0.9 (<1.2) Sodium (137-145) mmol/L Potassium (3.5-5.1) mmol/L Chloride (98-107) mmol/L Carbon Dioxide (22-30) mmol/L Anion Gap mmol/L BUN (9-20) mg/dL Creatinine (0.66-1.25) mg/dL Est GFR (CKD-EPI)AfAm (>60 ml/min/1.73 sqM) Est GFR (CKD-EPI)NonAf (>60 ml/min/1.73 sqM) Glucose (74-99) mg/dL Plasma Lactic Acid Nabeel (0.7-2.0) mmol/L Calcium (8.4-10.2) mg/dL Total Bilirubin (0.2-1.3) mg/dL AST (17-59) U/L ALT (4-49) U/L Alkaline Phosphatase (38-126) U/L Troponin I <0.012 (0.000-0.034) ng/mL Total Protein (6.3-8.2) g/dL Albumin (3.5-5.0) g/dL Disposition Clinical Impression: Hypertension, History of alcohol abuse Disposition: HOME SELF-CARE Condition: Stable Instructions (If sedation given, give patient instructions): Alcohol Intoxication (ED), Abuse of Alcohol (ED), Chronic Hypertension (ED) Additional Instructions: These return to the nearest emergency department if symptoms worsen or persist Is patient prescribed a controlled substance at d/c from ED?: No Referrals: Yonatan Bishop DO [Primary Care Provider] - 1-2 days Time of Disposition: 19:36
[2023-01-06 17:07] LABS: ALT 26 U/L (4-49); AST 39 U/L (17-59); African American GFR (CKD) >90 (>60 ml/min/1.73 sqM); Albumin 4.4 g/dL (3.5-5.0); Alkaline Phosphatase 63 U/L (38-126); Anion Gap 8 mmol/L; Blood Urea Nitrogen 9 mg/dL (9-20); Calcium 8.7 mg/dL (8.4-10.2); Carbon Dioxide 27 mmol/L (22-30); Chloride 92 mmol/L (98-107); Glucose 183 mg/dL (74-99); Non-African American GFR(CKD) >90 (>60 ml/min/1.73 sqM); Potassium 4.9 mmol/L (3.5-5.1); Sodium 127 mmol/L (137-145); Total Bilirubin 0.5 mg/dL (0.2-1.3); Total Protein 6.7 g/dL (6.3-8.2)
[2023-01-06 17:21] LABS: Basophils % (A) 0 %; Eosinophils % (A) 0 %; HCT 40.2 % (39.0-53.0); HGB 13.3 gm/dL (13.0-17.5); Lymphocytes # (A) 0.8 k/uL (1.0-4.8); Lymphocytes % (A) 8 %; MCH 32.9 pg (25.0-35.0); MCHC 33.1 g/dL (31.0-37.0); MCV 99.5 fL (80.0-100.0); Mean Platelet Volume 7.3; Monocytes # (A) 0.6 k/uL (0-1.0); Monocytes % (A) 6 %; Neutrophils # (A) 8.9 k/uL (1.3-7.7); Neutrophils % (A) 86 %; Platelet Count 255 k/uL (150-450); RBC 4.04 m/uL (4.30-5.90); RDW 12.3 % (11.5-15.5); WBC 10.4 k/uL (3.8-10.6)
[2023-01-06 17:38] LABS: INR 0.9 (<1.2); Prothrombin Time 9.4 sec (9.0-12.0)
--- NOTE | 2023-01-06 17:55 | XR ---
EXAMINATION TYPE: XR chest 2V DATE OF EXAM: 01/06/2023 5:48 PM COMPARISON: Chest radiographs from 09/04/2022 TECHNIQUE: XR chest 2V Frontal and lateral views of the chest. CLINICAL INDICATION:Male, 52 years old with history of HTN; FINDINGS: Lungs/Pleura: There is flattening of the diaphragm with increased lucency of the lungs. No evidence o f pneumothorax, pleural effusion or focal consolidation. Pulmonary vascularity: Unremarkable. Heart/mediastinum: Cardiomediastinal silhouette is unremarkable. Musculoskeletal: No acute osseous pathology. IMPRESSION: 1. No acute cardiopulmonary disease process. 2. COPD changes.
[2023-01-06] MEDS ORDERED: hydrALAZINE HCL 20 MG/ML 1 ML VIAL IVP STA (18:08)
[2023-01-06 19:30] VITALS: BP 159/96; PULSE 76; RESP 16
== END 2023-01-06 19:52 | disposition home or self-care (01) ==
LOC: EC 16:01
DX: I10 Essential (primary) hypertension (principal); F10.21 Alcohol dependence, in remission; I25.2 Old myocardial infarction; J44.9 Chronic obstructive pulmonary disease, unspecified; F17.200 Nicotine dependence, unspecified, uncomplicated
CPT/HCPCS: 36415; 71046; 80053; 83605; 84484; 85025; 85610; 93005; 96360; 99284

== ENCOUNTER 2023-09-08 18:06 | Emergency (ER) | payer BC ==
[2023-09-08 18:17] VITALS: TEMP 98.4
[2023-09-08] MEDS ORDERED: IPRATROPIUM-ALBUTEROL 3 ML NEB INHALATION STA (18:30)
--- NOTE | 2023-09-08 18:38 | ED ---
General Adult HPI - General Chief complaint: Upper Respiratory Infection Stated complaint: SOB Time Seen by Provider: 09/08/23 18:20 Source: patient, RN notes reviewed, old records reviewed Mode of arrival: ambulatory Limitations: no limitations - History of Present Illness Initial comments: This is a 53-year-old male who presents to the emergency department stating that he is a smoker and he has COPD. 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 Patient states last couple of days he has had a little bit of a cough but today when he went to the do his job welding all the smoke at home and he was having a hard time breathing and he thinks he just needs a breathing treatment. Patient denies any chest pain or heaviness. Patient denies any fevers. Patient states he has a slight cough but no sputum production. Patient denies any sore throat or congestion. Patient denies any abdominal pain patient denies any nausea vomiting diarrhea. - Related Data Home Medications Medication Instructions Recorded Confirmed lisinopriL 40 mg PO DAILY 02/17/20 01/06/23 Previous Rx's Medication Instructions Recorded Omeprazole 40 mg PO DAILY #30 cap 12/18/22 Cephalexin [Keflex] 500 mg PO Q8HR 5 Days #15 cap 04/06/23 Allergies Allergy/AdvReac Type Severity Reaction Status Date / Time No Known Allergies Allergy Verified 09/08/23 18:15 Review of Systems ROS Statement: Those systems with pertinent positive or pertinent negative responses have been documented in the HPI. ROS Other: All systems not noted in ROS Statement are negative. Past Medical History Past Medical History: GI Bleed, Hypertension, Myocardial Infarction ([place]) Additional Past Medical History / Comment(s): "Mild [place] 2012 est." c/o heartburn, occ vomiting, occ hematemesis. Last Myocardial Infarction Date:: 2011 History of Any Multi-Drug Resistant Organisms: None Reported Past Surgical History: No Surgical Hx Reported Past Anesthesia/Blood Transfusion Reactions: No Reported Reaction Past Psychological History: No Psychological Hx Reported Smoking Status: Current every day smoker Past Alcohol Use History: Daily, Heavy Past Drug Use History: None Reported - Past Family History Mother Family Medical History: Cancer Additional Family Medical History / Comment(s): breast General Exam - General Exam Comments Initial Comments: GENERAL: Patient is well-developed and well-nourished. Patient is nontoxic and well- hydrated and is in mild distress. ENT: Neck is soft and supple. No significant lymphadenopathy is noted. Oropharynx is clear. Moist mucous membranes. Neck has full range of motion without eliciting any pain. EYES: The sclera were anicteric and conjunctiva were pink and moist. Extraocular movements were intact and pupils were equal round and reactive to light. Eyelids were unremarkable. PULMONARY: Some slight expiratory wheezing CARDIOVASCULAR: There is a regular rate and rhythm without any murmurs gallops or rubs. ABDOMEN: Soft and nontender with normal bowel sounds. SKIN: Skin is clear with no lesions or rashes and otherwise unremarkable. NEUROLOGIC: Patient is alert and oriented x3. Cranial nerves II through XII are grossly intact. Motor and sensory are also intact. Normal speech, volume and content. Symmetrical smile. MUSCULOSKELETAL: Normal extremities with adequate strength and full range of motion. No lower extremity swelling or edema. No calf tenderness. LYMPHATICS: No significant lymphadenopathy is noted PSYCHIATRIC: Normal psychiatric evaluation. Limitations: no limitations Course Vital Signs 09/08/23 09/08/23 18:14 18:15 Temperature 98.4 F Pulse Rate 94 Respiratory 20 18 Rate Blood Pressure 114/70 O2 Sat by Pulse 99 Oximetry Medical Decision Making - Medical Decision Making EKG is interpreted by myself EKG shows a sinus rhythm at 81 bpm. 58 QRS 106 QT interval 358 QTc is 396. Patient's EKG shows no ST segment elevations or depression. Was pt. sent in by a medical professional or institution ([facility], [facility], urgent care, hospital, or long-term...) When possible be specific @ -No Did you speak to anyone other than the patient for history (EMS, parent, family, police, friend...)? What history was obtained from this source @ -No Did you review nursing and triage notes (agree or disagree)? Why? @ -I reviewed and agree with nursing and triage notes Were old charts reviewed (outside hosp., previous admission, EMS record, old EKG, old radiological studies, urgent care reports/EKG's, long-term records)? Report findings @ -I reviewed prior charts and prior lab work Differential Diagnosis (chest pain, altered mental status, abdominal pain women, abdominal pain men, vaginal bleeding, weakness, fever, dyspnea, syncope, headache, dizziness, GI bleed, back pain, seizure, CVA, palpatations, mental health, musculoskeletal)? @ -Differential Dyspnea: Coronary syndrome, arrhythmia, tamponade, asthma, COPD, pulmonary embolism, pneumonia, pneumothorax, pulmonary effusion, anaphylaxis, diabetic ketoacidosis, flailed chest, pulmonary contusion, diaphragmatic rupture, anemia, neuromuscular, this is not meant to be an all-inclusive list. EKG interpreted by me (3pts min.). @ -As above X-rays interpreted by me (1pt min.). @ -Chest x-ray shows no acute abnormality CT interpreted by me (1pt min.). @ -None done U/S interpreted by me (1pt. min.). @ -None done What testing was considered but not performed or refused? (CT, X-rays, U/S, labs)? Why? @ -None What meds were considered but not given or refused? Why? @ -None Did you discuss the management of the patient with other professionals (professionals i.e. , PA, [place] [facility], lab, RT, psych nurse, licensed social worker, pediatrics teacher, teacher, corporation officer, correctional case manager)? Give summary @ -No Was smoking cessation discussed for >3mins.? @ -No Was critical care preformed (if so, how long)? @ -No Were there social determinants of health that impacted care today? How? (Homelessness, low income, unemployed, alcoholism, drug addiction, transportation, low edu. Level, literacy, decrease access to med. care, custodial, rehab)? @ -No Was there de-escalation of care discussed even if they declined (Discuss DNR or withdrawal of care, Hospice)? DNR status @ -No What co-morbidities impacted this encounter? (DM, HTN, Smoking, COPD, CAD, Cancer, CVA, ARF, Chemo, Hep., AIDS, mental health diagnosis, sleep apnea, morbid obesity)? @ -None Was patient admitted / discharged? Hospital course, mention meds given and route, prescriptions, significant lab abnormalities, going to OR and other pertinent info. @ -Patient's x-ray showed no acute normality patient was negative for influenza AMB and COVID and RSV. Patient received breathing treatments feeling considerably better. Undiagnosed new problem with uncertain prognosis? @ -No Drug Therapy requiring intensive monitoring for toxicity (Heparin, Nitro, Insulin, Cardizem)? @ -No Were any procedures done? @ -No Diagnosis/symptom? @ -COPD exacerbation Acute, or Chronic, or Acute on Chronic? @ -Acute Uncomplicated (without systemic symptoms) or Complicated (systemic symptoms)? @ -Complicated Side effects of treatment? @ -No Exacerbation, Progression, or Severe Exacerbation? @ -No Poses a threat to life or bodily function? How? (Chest pain, [place], [place], pneumonia, PE, COPD, DKA, ARF, appy, cholecystitis, CVA, Diverticulitis, Homicidal, Suicidal, threat to staff... and all critical care pts) @ -No - Lab Data Lab Results 09/08/23 Range/Units 18:51 Influenza Type A (PCR) Not Detected (Not Detectd) Influenza Type B (PCR) Not Detected (Not Detectd) RSV (PCR) Not Detected (Not Detectd) SARS-CoV-2 (PCR) Not Detected (Not Detectd) Disposition Clinical Impression: COPD exacerbation Disposition: HOME SELF-CARE Condition: Good Instructions (If sedation given, give patient instructions): COPD (Chronic Obstructive Pulmonary Disease) (ED) Is patient prescribed a controlled substance at d/c from ED?: No Referrals: Yonatan Bishop DO [Primary Care Provider] - 1-2 days Time of Disposition: 20:09
--- NOTE | 2023-09-08 19:05 | XR ---
EXAMINATION TYPE: XR chest 2V DATE OF EXAM: 09/08/2023 6:55 PM CLINICAL INDICATION:Male, 53 years old with history of Mildly short of breath; [facility] COMPARISON: Chest radiographs from 01/06/2023 TECHNIQUE: XR chest 2V Frontal and lateral views of the chest. FINDINGS: Lungs/Pleura: There is flattening of the diaphragm with increased lucency of the lungs. No evidence o f pneumothorax, pleural effusion or focal consolidation. Pulmonary vascularity: Unremarkable. Heart/mediastinum: Cardiomediastinal silhouette is unremarkable. Musculoskeletal: No acute osseous pathology. Other findings: None IMPRESSION: 1. No acute cardiopulmonary disease process. 2. COPD changes.
[2023-09-08 20:49] VITALS: BP 124/85; PULSE 87; RESP 16
== END 2023-09-08 20:18 | disposition home or self-care (01) ==
LOC: EC 18:06
DX: J44.1 Chronic obstructive pulmonary disease with (acute) exacerbation (principal); I10 Essential (primary) hypertension; I25.2 Old myocardial infarction; F17.200 Nicotine dependence, unspecified, uncomplicated; Z20.822 Contact with and (suspected) exposure to COVID-19; Z79.899 Other long term (current) drug therapy
CPT/HCPCS: 71046; 87636; 93005; 99285

== ENCOUNTER 2023-09-09 19:18 | Emergency (ER) | payer BC ==
[2023-09-09 19:34] VITALS: TEMP 98.5
--- NOTE | 2023-09-09 20:00 | ED ---
Dizziness HPI - General Chief Complaint: Dizziness Stated Complaint: vision issues Time Seen by Provider: 09/09/23 19:33 Source: patient Mode of arrival: ambulatory Limitations: no limitations - History of Present Illness Initial Comments: 53-year-old male presenting to the ED with a chief complaint of dizziness. Patient states that around 2 PM today after drinking his friend offered him a nicotine patch which he placed. States when he placed a nicotine patch he also started to smoke a cigarette. States that shortly after started to become dizzy/lightheaded. States when he finally took the patch 3 hours later symptoms improved. Patient states that this time he is experiencing no symptoms. No complaints at this time. No chest pain or shortness of breath. - Related Data Home Medications Medication Instructions Recorded Confirmed lisinopriL 40 mg PO DAILY 02/17/20 01/06/23 Previous Rx's Medication Instructions Recorded Omeprazole 40 mg PO DAILY #30 cap 12/18/22 Cephalexin [Keflex] 500 mg PO Q8HR 5 Days #15 cap 04/06/23 Allergies Allergy/AdvReac Type Severity Reaction Status Date / Time No Known Allergies Allergy Verified 09/09/23 19:29 Review of Systems ROS Statement: Those systems with pertinent positive or pertinent negative responses have been documented in the HPI. ROS Other: All systems not noted in ROS Statement are negative. Past Medical History Past Medical History: GI Bleed, Hypertension, Myocardial Infarction ([place]) Additional Past Medical History / Comment(s): "Mild [place] 2011 est." c/o heartburn, occ vomiting, occ hematemesis. Last Myocardial Infarction Date:: 2011 History of Any Multi-Drug Resistant Organisms: None Reported Past Surgical History: No Surgical Hx Reported Past Anesthesia/Blood Transfusion Reactions: No Reported Reaction Past Psychological History: No Psychological Hx Reported Smoking Status: Current every day smoker Past Alcohol Use History: Daily, Heavy Past Drug Use History: None Reported - Past Family History Mother Family Medical History: Cancer Additional Family Medical History / Comment(s): breast General Exam Limitations: no limitations General appearance: alert, in no apparent distress Eye exam: Present: normal appearance Neck exam: Present: normal inspection Respiratory exam: Present: normal lung sounds bilaterally Cardiovascular Exam: Present: regular rate, normal rhythm GI/Abdominal exam: Present: soft Neurological exam: Present: alert, oriented X3, CN II-XII intact Skin exam: Present: warm, dry Course Vital Signs 09/09/23 19:23 Temperature 98.5 F Pulse Rate 95 Respiratory 16 Rate Blood Pressure 93/62 O2 Sat by Pulse 99 Oximetry Medical Decision Making - Medical Decision Making Was pt. sent in by a medical professional or institution (MONTY Banks, FOREST RANGER TECHNICIAN, urgent care, hospital, or correction...) When possible be specific @ -No Did you speak to anyone other than the patient for history (EMS, parent, family, police, friend...)? What history was obtained from this source @ -No Did you review nursing and triage notes (agree or disagree)? Why? @ -I reviewed and agree with nursing and triage notes Were old charts reviewed (outside hosp., previous admission, EMS record, old EKG, old radiological studies, urgent care reports/EKG's, correction records)? Report findings @ -No old charts were reviewed Differential Diagnosis (chest pain, altered mental status, abdominal pain women, abdominal pain men, vaginal bleeding, weakness, fever, dyspnea, syncope, headache, dizziness, GI bleed, back pain, seizure, CVA, palpatations, mental health, musculoskeletal)? @ -Differential Dizziness: Benign paroxysmal positional Vertigo, Menieres disease, otitis media, acoustic neuroma, vertebrobasilar insufficiency, cerebellar stroke, encephalitis, hypovolemic, arrhythmia, coronary artery syndrome, anemia, this is not meant to be an all-inclusive list EKG interpreted by me (3pts min.). @ -None X-rays interpreted by me (1pt min.). @ -None done CT interpreted by me (1pt min.). @ -None done U/S interpreted by me (1pt. min.). @ -None done What testing was considered but not performed or refused? (CT, X-rays, U/S, labs)? Why? @ -None What meds were considered but not given or refused? Why? @ -None Did you discuss the management of the patient with other professionals (professionals i.e. MONTY Banks, FOREST RANGER TECHNICIAN, lab, RT, psych nurse, social media content specialist, machine filler shredder, teacher, security flex officer, family independence case manager)? Give summary @ -No Was smoking cessation discussed for >3mins.? @ -No Was critical care preformed (if so, how long)? @ -No Were there social determinants of health that impacted care today? How? (Homelessness, low income, unemployed, alcoholism, drug addiction, t ransportation, low edu. Level, literacy, decrease access to med. care, shelter, rehab)? @ -No Was there de-escalation of care discussed even if they declined (Discuss DNR or withdrawal of care, Hospice)? DNR status @ -No What co-morbidities impacted this encounter? (DM, HTN, Smoking, COPD, CAD, Cancer, CVA, ARF, Chemo, Hep., AIDS, mental health diagnosis, sleep apnea, morbid obesity)? @ -Smoking/tobacco use Was patient admitted / discharged? Hospital course, mention meds given and route, prescriptions, significant lab abnormalities, going to OR and other pertinent info. @ -Discharge 53-year-old male presented to the ED with a chief complaint of dizziness after drinking and placing a nicotine patch and noting that he continued to smoke cigarettes while the nicotine patch was on. States he took the patch off 2 hours ago and notes symptoms are now completely resolved. Exam including neurologic exam unremarkable at this time. Patient is also ambulating without difficulty. Patient discharged home in stable condition. Advised to not use too msny nicotine products at the same time. At this time, vital signs stable afebrile. Discharged home in stable condition. Undiagnosed new problem with uncertain prognosis? @ -No Drug Therapy requiring intensive monitoring for toxicity (Heparin, Nitro, Insulin, Cardizem)? @ -No Were any procedures done? @ -No Diagnosis/symptom? @ -Dizziness after nicotine use Acute, or Chronic, or Acute on Chronic? @ -Acute Uncomplicated (without systemic symptoms) or Complicated (systemic symptoms)? @ -Uncomplicated Side effects of treatment? @ -No Exacerbation, Progression, or Severe Exacerbation? @ -No Poses a threat to life or bodily function? How? (Chest pain, [place], [place], pneumonia, PE, COPD, DKA, ARF, appy, cholecystitis, CVA, Diverticulitis, Homicidal, Suicidal, threat to staff... and all critical care pts) @ -No Disposition Clinical Impression: Dizziness Disposition: HOME SELF-CARE Condition: Good Instructions (If sedation given, give patient instructions): Dizziness (ED) Additional Instructions: Please return to the Emergency Department if symptoms worsen or any other concerns. Please refrain from using too many nicotine products at the same time. Is patient prescribed a controlled substance at d/c from ED?: No Referrals: Yonatan Bishop DO [Primary Care Provider] - 1-2 days Time of Disposition: 20:06
[2023-09-09 20:28] VITALS: BP 110/74; PULSE 89; RESP 18
== END 2023-09-09 20:24 | disposition home or self-care (01) ==
LOC: EC 19:18
DX: R42 Dizziness and giddiness (principal); I10 Essential (primary) hypertension; I25.2 Old myocardial infarction; F17.210 Nicotine dependence, cigarettes, uncomplicated; Z79.899 Other long term (current) drug therapy
CPT/HCPCS: 99283

== ENCOUNTER 2024-05-30 04:47 | Emergency (ER) | payer SELFPAY ==
[2024-05-30 04:52] VITALS: BP 107/75; PULSE 83; RESP 18; TEMP 98.7
--- NOTE | 2024-05-30 05:02 | ED ---
General Adult HPI <Chana Hong - Last Filed: 05/30/24 06:14> - General Source: patient Mode of arrival: ambulatory Limitations: no limitations <Cari Aguilera - Last Filed: 05/30/24 07:27> - General Chief complaint: Extremity Injury, Lower Stated complaint: L Ankle Injury Time Seen by Provider: 05/30/24 04:57 - History of Present Illness Initial comments: Patient is a 54-year-old male presenting today for left ankle injury. Patient states that he tripped and fell down 5 stairs landing on his left ankle. Denies additional injury. States he tried to go to sleep but kept waking up secondary to pain. Unable to bear weight on the left foot due to pain at the ankle. No pain medications prior to arrival. Denies any numbness. Endorses swelling around the left ankle (Cari Aguilera) - Related Data Home Medications Medication Instructions Recorded Confirmed lisinopriL 40 mg PO DAILY 02/17/20 01/06/23 Previous Rx's Medication Instructions Recorded Omeprazole 40 mg PO DAILY #30 cap 12/18/22 Cephalexin [Keflex] 500 mg PO Q8HR 5 Days #15 cap 04/06/23 Allergies Allergy/AdvReac Type Severity Reaction Status Date / Time No Known Allergies Allergy Verified 05/30/24 04:49 Review of Systems ROS Other: All systems not noted in ROS Statement are negative. <Chana Hong - Last Filed: 05/30/24 06:14> ROS Other: All systems not noted in ROS Statement are negative. <Cari Aguilera - Last Filed: 05/30/24 07:27> ROS Statement: Those systems with pertinent positive or pertinent negative responses have been documented in the HPI. Past Medical History Past Medical History: GI Bleed, Hypertension, Myocardial Infarction ([place]) Additional Past Medical History / Comment(s): "Mild [place] 2012 est." c/o heartburn, occ vomiting, occ hematemesis. Last Myocardial Infarction Date:: 2011 History of Any Multi-Drug Resistant Organisms: None Reported Past Surgical History: No Surgical Hx Reported Past Anesthesia/Blood Transfusion Reactions: No Reported Reaction Past Psychological History: No Psychological Hx Reported Smoking Status: Current every day smoker Past Alcohol Use History: Daily, Heavy Past Drug Use History: None Reported - Past Family History Mother Family Medical History: Cancer Additional Family Medical History / Comment(s): breast <Cari Aguilera - Last Filed: 05/30/24 07:27> General Exam Limitations: no limitations <Cari Aguilera - Last Filed: 05/30/24 07:27> - General Exam Comments Initial Comments: PE: CONSTITUTIONAL: No apparent distress, well appearing SKIN: Warm, dry, no jaundice, hives or petechiae, mild bruising around left ankle EYES: Pupils are equally round, extraocular movements intact without nystagmus, clear conjunctiva, non-icteric sclera HENT: Normocephalic, atraumatic, moist mucus membranes, oropharynx clear without exudates NECK: , Full range of motion, normal appearance MUSCULOSKELETAL: Mild swelling to the medial and lateral aspects of the left ankle, tenderness to palpation of the posterior and anterior lateral malleolus, mild bruising present, no gross deformity, patient is able to dorsiflex the left foot however unable to fully 2/2 pain, 2+ DP pulse palpated, sensation to light touch intact throughout, able to move toes, flex and extend of the left knee, no additional injuries of the left lower extremity, no tenderness palpation of the calcaneus or plantar aspect of the left foot extremities have no gross deformity, no edema, redness, or swelling. No calf swelling NEUROLOGIC:_a/o x 3, GCS 15, normal mentation and speech. Moves all extremities x 4 without motor or sensory deficit PSYCHIATRIC:_normal mood and affect, thought process is clear and linear (Cari Aguilera) Course Vital Signs 05/30/24 04:49 Temperature 98.7 F Pulse Rate 83 Respiratory 18 Rate Blood Pressure 107/75 O2 Sat by Pulse 99 Oximetry Medical Decision Making <Cari Aguilera - Last Filed: 05/30/24 07:27> - Medical Decision Making Was pt. sent in by a medical professional or institution (, PA, PLASTIC MOLDING OPERATOR, urgent care, hospital, or [facility]...) When possible be specific @ -No Did you speak to anyone other than the patient for history (EMS, parent, family, police, friend...)? What history was obtained from this source @ -No Did you review nursing and triage notes (agree or disagree)? Why? @ -I reviewed and agree with nursing and triage notes Were old charts reviewed (outside hosp., previous admission, EMS record, old EKG, old radiological studies, urgent care reports/EKG's, [facility] records)? Report findings @ -No old charts were reviewed Differential Diagnosis (chest pain, altered mental status, abdominal pain women, abdominal pain men, vaginal bleeding, weakness, fever, dyspnea, syncope, headache, dizziness, GI bleed, back pain, seizure, CVA, palpatations, mental health, musculoskeletal)? @ -Not applicable EKG interpreted by me (3pts min.). @ -As above X-rays interpreted by me (1pt min.). @ -I see no evidence of fracture or dislocation CT interpreted by me (1pt min.). @ -None done U/S interpreted by me (1pt. min.). @ -None done What testing was considered but not performed or refused? (CT, X-rays, U/S, labs)? Why? @ -None What meds were considered but not given or refused? Why? @ -None Did you discuss the management of the patient with other professionals (professionals i.e. , PA, PLASTIC MOLDING OPERATOR, lab, RT, psych nurse, 7th grade social studies teacher, client application support specialist, teacher, community development officer, case mgr)? Give summary @ -No Was smoking cessation discussed for >3mins.? @ -No Was critical care preformed (if so, how long)? @ -No Were there social determinants of health that impacted care today? How? (Homelessness, low income, unemployed, alcoholism, drug addiction, vela sportation, low edu. Level, literacy, decrease access to med. care, assisted, rehab)? @ -No Was there de-escalation of care discussed even if they declined (Discuss DNR or withdrawal of care, Hospice)? @ -No What co-morbidities impacted this encounter? (DM, HTN, Smoking, COPD, CAD, Cancer, CVA, ARF, Chemo, Hep., AIDS, mental health diagnosis, sleep apnea, morbid obesity)? @ -None Was patient admitted / discharged? Hospital course, mention meds given and route, prescriptions, significant lab abnormalities, going to OR and other pertinent info. @ -Hospital course discharged 54-year-old gentleman with no significant past medical history presenting today for left ankle injury. Denies additional injuries. Exam significant for tenderness palpation of the lateral malleolus, mild swelling and bruising around the left ankle, no tenderness palpation of the left foot, no joint instability, extremity is neurovascularly intact. Plan for pain control and plain films. Patient is agreeable plan of care. X-ray read by radiologist as process. Patient placed in an air splint. Patient provided with crutches. I discussed with him the importance of early ambulation if he is unable to wait in the next 24 to 48 hours he should return to the emergency department for reassessment. Otherwise I instructed him to follow-up with orthopedics or his primary care provider regarding today's injury. Patient agreeable with plan of care. In my medical judgment there is currently no evidence of an immediate life- threatening or surgical condition. Discharge is therefore indicated at this time. Discharge treatment instructions, follow up instructions, and appropriate emergency department return precautions were discussed with the patient and/or medical decision maker. Patient and/or medical decision maker expressed understanding of and agreed with the treatment plan, follow up instructions, and emergency department return precaution. All patient's and/or medical decision maker's questions were answered. The patient was advised that a small risk still exists that a serious condition could develop and was therefore instructed to return to the ED for any changes in symptoms, persistent symptoms, inability to obtain proper follow-up or for any further concerns. Patient received verbal and written instructions for this condition. Undiagnosed new problem with uncertain prognosis? @ -No Drug Therapy requiring intensive monitoring for toxicity (Heparin, Nitro, Insulin, Cardizem)? @ -No Were any procedures done? @ -No Diagnosis/symptom? @ -Ankle sprain Acute, or Chronic, or Acute on Chronic? @ -Acute Uncomplicated (without systemic symptoms) or Complicated (systemic symptoms)? @ -Complicated Side effects of treatment? @ -No Exacerbation, Progression, or Severe Exacerbation? @ -No Poses a threat to life or bodily function? How? (Chest pain, [place], [place], pneumonia, PE, COPD, DKA, ARF, appy, cholecystitis, CVA, Diverticulitis, Homicidal, Suicidal, threat to staff... and all critical care pts) @ -No (Cari Aguilera) Disposition <Chana Hong - Last Filed: 05/30/24 06:14> Is patient prescribed a controlled substance at d/c from ED?: No <Cari Aguilera - Last Filed: 05/30/24 07:27> Clinical Impression: Left ankle sprain Disposition: HOME SELF-CARE Condition: Good Instructions (If sedation given, give patient instructions): Ankle Sprain (ED) Additional Instructions: Every disease is a spectrum and a small chance still exists that a serious condition could develop, for this reason, please monitor yourself closely for new, changing or worsening symptoms, symptoms that do not improve in the next 24 hours, inability to bear weight on your left ankle after 24 hours, worsening swelling, redness, new, uncontrolled pain, inability to tolerate/keep down flui ds or your medications, inability to follow up with outpatient providers as instructed and should you experience these symptoms or should you have any further concerns for your wellbeing please return to the ED or call 911 immediately. Please follow-up with your primary care provider or orthopedic surgeon Dr. Hernandez in the next 3 to 5 days for reassessment Your pain can be treated with ibuprofen and acetaminophen. You can take up to 400-600 mg of ibuprofen (Advil, Motrin) 3 times daily (every 8 hours) but can also use lower doses if this relieves your pain. Some people prefer naproxen (Aleve, Naprosyn) which can be taken in doses of 500 mg up to twice a day. Do not take both of these medicines together, and do not combine either with ketorolac (Toradol), meloxicam (Mobic), or indomethacin (Tivorbex). Some people can develop stomach discomfort with higher doses of either ibuprofen or naproxen, if this develops decrease your dose or stop taking it. If you need to take this dose daily for more than a week, please schedule an appointment for re-evaluation with your PCP. Please take these medications with food. You can take up to 1000 mg of acetaminophen (Tylenol) every 6 hours. Be careful as this is included in some medicines like Nyquil, [place], Percocet, Vicodin, STANBACK, Goody's Powders, and Excedrin. You can also use lidocaine patches for topical pain. You can purchase 4% patches over the counter at most drug stores. These can be helpful for pain from your muscles or bones. PLEASE call your primary care physician as soon as possible to arrange / discuss plan for followup appointment. Appointment in the next 1-3 days is strongly encouraged if possible. PLEASE let us know here before you leave if there is anything further we can do to be of any assistance. Take care and feel Better! Referrals: Yonatan Bishop DO [Primary Care Provider] - 1-2 days Julio Mejia MD [STAFF PHYSICIAN] - 1-2 days
[2024-05-30] MEDS: HYDROcodone/APAP 5-325MG 1 EACH TAB PO STA (05:36)
[2024-05-30] MEDS: KETOROLAC 15 MG/ML 1 ML VIAL IM STA (05:37)
--- NOTE | 2024-05-30 05:48 | XR ---
EXAM: XR Left Tibia and Fibula, 2 Views CLINICAL HISTORY: fall, TTP lateral malleolus TECHNIQUE: Frontal and lateral views of the left tibia and fibula. COMPARISON: No relevant prior studies available. FINDINGS: Bones/joints: Unremarkable. No acute fracture. No dislocation. Soft tissues: Unremarkable. No radiopaque foreign body. IMPRESSION: No acute post-traumatic abnormality.
== END 2024-05-30 06:19 | disposition home or self-care (01) ==
LOC: EC 04:47
CPT/HCPCS: 96372; 99283